=== PATIENT | female | born 1955 | race Caucasian/White ===

== ENCOUNTER 2019-02-18 16:29 | Day surgery (SDC) | payer OTHER ==
--- NOTE | 2019-02-18 12:04 | PDHPUP ---
History & Physical Update H&P update statement: This history and physical update is based on an assessment of the patient which was completed after admission or registration (within 24 hours), but prior to the surgery/procedure. H&P update: changes noted (increased pain. CT scan with colon and mesenteric fat in hernia. Moved surgery from Friday elective to today Urgen)
--- NOTE | 2019-02-18 14:48 | GHP ---
[f rep st] HISTORY AND PHYSICAL DATE OF ADMISSION: 02/18/2019 CHIEF COMPLAINT: Umbilical hernia. HISTORY OF PRESENT ILLNESS: The patient is a 63-year-old woman who presented to my office in 2017 due to a chronic wound at her umbilical incision. She had undergone a laparoscopic cholecy stectomy March 04, 2018, and developed a postoperative surgical incision. She healed from the wound ex ploration but has now developed a hernia. She was seen in the office last week with a reducible rakel ia. However, last night her pain became more symptomatic, and, per PCP, CT scan was obtained which s howed transverse colon and mesenteric fat in the hernia. Decision was made to perform surgery today. PAST MEDICAL HISTORY: Ankylosing spondylitis, anxiety, gastroesophageal reflux disease. PAST SURGICAL HISTORY: Appendectomy, cholecystectomy, laminectomy. MEDICATIONS: Unchanged. ALLERGIES: Dilaudid causes hallucinations. SOCIAL HISTORY: Former tobacco use. REVIEW OF SYSTEMS: No fevers or chills. She does have abdominal pain. PHYSICAL EXAMINATION: GENERAL: Pleasant well-nourished, well-groomed woman. HEENT: Normocephalic. No gross hearing deficits. Mucous membranes moist. Pupils equal and round. No scleral icterus. LUNGS: Clear to auscultation bilaterally, no increased work of breathing. CARDIAC: Regular rate, n o peripheral edema. ABDOMEN: Bowel sounds present, soft umbilical hernia. MUSCULOSKELETAL: Normal nails. SKIN: Warm and dry. PSYCH: Mood and affect normal. IMPRESSION AND PLAN: 63-year-old with umbilical hernia. Risks and benefits including, but not limit ed to, stroke, heart attack, , blood clots, infection, bleeding, recurrence were all discussed. She had her questions answered to her satisfaction. /[id number]/MODL
[2019-02-18] MEDS ORDERED: LR 1,000 ML IV ONE (16:57)
--- NOTE | 2019-02-18 17:06 | POSTANESTH ---
Post Anesthetic Evaluation Cardiovascular Status: Normal, Stable Respiratory Status: Normal, Stable Level of Consciousness/Mental Status: Can Participate in Eval, Mildly Sleepy, Arousable Pain Control: Inadeq, Add Tx Required (Pt rates her pain at 7-8/10. However she states her baseline back pain is 8/10 over the past week and her abdominal pain after her CT scan this afternoon was a 9/10. Given this context, I feel that treating her with lower dose oral pain meds is appropriate as her current pain is less than her baseline back pain.) Nausea/Vomiting Control: Adequate, Prn Tx Ordered Complications Possibly Related to Anesthesia: None Noted Notes: Pt very fixated on being admitted overnight as she is concerned about her driving home to [place] [facility] [place] in the dark.
[2019-02-18] MEDS ORDERED: MIDAZOLAM 2 MG/2 ML VIAL IVP ONE (17:09)
--- NOTE | 2019-02-18 17:10 | PDANEPAE ---
ANE History of Present Illness 63 yo female for open umbilical hernia repair. ANE Past Medical History - Cardiovascular History Hx Hypertension: No Hx Arrhythmias: No Hx Chest Pain: No Hx Coronary Artery / Peripheral Vascular Disease: No Hx CHF / Valvular Disease: Yes Hx Palpitations: No Cardiovascular History Comment: h/o mitral valve prolapse - Pulmonary History Hx COPD: No Hx Asthma/Reactive Airway Disease: No Hx Recent Upper Respiratory Infection: No Hx Oxygen in Use at Home: No Hx Sleep Apnea: No - Neurologic History Hx Cerebrovascular Accident: No Hx Seizures: No Hx Dementia: No - Renal History Hx Renal Disorders: No - Neurological & Psychiatric Hx Hx Neurological and Psychiatric Disorders: Yes Neurological / Psychiatric History Comment: anxiety/depression. ankylosing spondylitis vs reactive arthritis - no spinal fusion, good ROM of cervical spine - GI History GERD: moderate Gastrointestinal History Comment: on multi meds for GERD - Chronic Pain History Chronic Pain: Yes (arthritic pain in lower back and neck - takes 60 Percocets in 3-4 months) ANE Review of Systems Review of Systems: - Systems Constitutional: Reports: no symptoms Gastrointestinal: Reports: abdominal pain ANE Patient History - Allergies Allergies/Adverse Reactions: hydromorphone [From Dilaudid] Allergy (Verified 02/18/19 12:03) - Home Medications Home Medications: CLONAZEPAM 02/18/19 [Last Taken 02/18/19] CeleBREX 02/18/19 [Last Taken Unknown] Cimzia 02/18/19 [Last Taken 02/04/19] Cyclobenzaprine 02/18/19 [Last Taken 02/17/19] Gabapentin 02/18/19 [Last Taken 02/18/19] Hydrocodone-Acetamin 5-325 mg 02/18/19 [Last Taken 02/18/19] Omeprazole 02/18/19 [Last Taken Unknown] PRISTIQ 02/18/19 [Last Taken 02/18/19] Ranitidine HCl 02/18/19 [Last Taken 02/18/19] - NPO status NPO Since - Liquids (Date): 02/18/19 NPO Since - Liquids (Time): 09:00 NPO Since - Solids (Date): 02/18/19 NPO Since - Solids (Time): 18:00 - Anes Hx Anes Hx: no prior problems - Family Anes Hx Family Anes Hx: neg - N/A ANE Labs/Vital Signs - Vital Signs Blood Pressure: 122/89 Heart Rate: 76 Respiratory Rate: 18 O2 Sat (%): 98 Height: 167.64 cm Weight: 68.039 kg ANE Physical Exam - Airway Neck exam: FROM Mallampati Score: Class 2 Mouth exam: normal dental/mouth exam - Pulmonary Pulmonary: clear to auscultation - Cardiovascular Cardiovascular: regular rate and rhythym - ASA Status ASA Status: III ANE Anesthesia Plan Anesthesia Plan: general endotracheal anesthesia
[2019-02-18] MEDS ORDERED: BUPIVACAINE 0.5% 30 ML SDV ONE (17:23)
[2019-02-18] MEDS ORDERED: DEXAMETHASONE 4 MG/ML VIAL ONE (17:28)
[2019-02-18] MEDS ORDERED: LIDOCAINE 2% 5 ML SDV ONE (17:28)
[2019-02-18] MEDS ORDERED: fentaNYL 100 MCG/2 ML INJ ONE ×2 (17:28→19:16)
[2019-02-18] MEDS ORDERED: PROPOFOL 200 MG/20 ML VIAL ONE ×2 (17:29)
[2019-02-18] MEDS ORDERED: ceFAZolin 1 GM VIAL ONE ×2 (17:35)
[2019-02-18] MEDS ORDERED: ONDANSETRON 4 MG/2 ML VIAL ONE (17:52)
[2019-02-18] MEDS ORDERED: KETOROLAC 30 MG/1 ML SDV ONE (17:52)
[2019-02-18] MEDS ORDERED: NALOXONE HCL 0.4 MG/ML INJ IVP PRN (18:25)
[2019-02-18] MEDS ORDERED: ACETAMINOPHEN 500 MG TAB PO PRN (18:25)
[2019-02-18] MEDS ORDERED: LR 500 ML IV PRN (18:25)
[2019-02-18] MEDS ORDERED: PROMETHAZINE HCL 25 MG/ML INJ IVP PRN (18:25)
--- NOTE | 2019-02-18 19:06 | POSTOPPROG ---
Post Op Note Date of Operation: 02/18/19 Surgeon: Kristina Menendez Anesthesiologist: quyen Anesthesia: LMA Pre-op Diagnosis: umbilical hernia incarcerated Post-op Diagnosis: same Indication: 63 yo with reducible umbilical hernia - ct scan with colon and fat. Increa Procedure: umbilical hernia repair with mesh Findings: large hernia sac Inf/Abcess present in the surg proc area at time of surgery?: No EBL: Minimal Specimen(s): hernia sac
[2019-02-18] MEDS: fentaNYL 100 MCG/2 ML INJ IVP PRN ×2 (19:18→19:24)
[2019-02-18] MEDS ORDERED: oxyCODONE IR 5 MG TAB ONE (20:22)
[2019-02-18] MEDS: oxyCODONE IR 5 MG TAB PO PRN ×2 (20:28→21:05)
[2019-02-18 21:57] VITALS: BP 94/67
== END 2019-02-18 21:44 | disposition home or self-care (01) ==
LOC: FSGY 16:29
PROVIDERS: ATTEND Surgery
PROC: 0WUF0JZ Supplement Abdominal Wall with Synthetic Substitute, Open Approach (ICD-10-PCS; principal; 2019-02-18 17:45)
DX: K42.0 Umbilical hernia with obstruction, without gangrene (principal); K21.9 Gastro-esophageal reflux disease without esophagitis; F41.9 Anxiety disorder, unspecified
CPT/HCPCS: C1781; J0690; J1100; J1885; J2250; J2405; J2704; J3010